=== PATIENT | female | born 1990 | race Caucasian/White ===

== ENCOUNTER 2019-02-01 09:23 | Inpatient (IN) | payer OTHER ==
--- NOTE | 2019-02-01 09:52 | PDOC.LDHP ---
Labor and Delivery H&P Chief complaint: scheduled section HPI: Pt is a 29yo @ 39 weeks here for scheduled RCS. Current gestational age (weeks): 39 Due date: 02/08/19 Dating criteria: last menstrual period, first trimester ultrasound Grav: 3 Para: 2 OB History Details: prev CS x 2 Current complications: none Abnormal US findings: No Current medications: pre- vitamins Previous surgical history: low tranverse CS (x2) Social history: none - Physical Exam Vital signs reviewed and normal: yes General: NAD Heart: RRR Lungs: CTAB Abdomen: gravid Extremeties: no edema FHT: category 1 - OB Labs Blood type: O RH: positive Antibody Screen: negative HIV: negative RPR: negative HEPSAg: negative 1 hour GCT: negative GBS: negative Rubella: immune - Assessment L&D Assessment: scheduled repeat section - Plan Plan: admit to L&D, to OR for section, informed consent obtained, anesthesia consult for pain management -: A/P: Scheduled RCS @ 39 weeks, OnQ pump desired.
[2019-02-01] MEDS ORDERED: Lactated Ringer's 1,000 ML IV SCH ×2 (10:36→15:34)
[2019-02-01] MEDS ORDERED: Promethazine HCl 25 MG/ML VIAL IM PRN ×3 (10:36→16:38)
[2019-02-01] MEDS ORDERED: Ondansetron PF 4 MG/2 ML Vial IVP PRN ×4 (10:36→16:38)
[2019-02-01] MEDS ORDERED: Ropivacaine 0.2% 550 ML 750 ML NERVE BLCK SCH (10:36)
[2019-02-01 11:17] VITALS: BMI 29.2
[2019-02-01] MEDS ORDERED: Ropivacaine HCl/PF 750 ML in Premix Bag 1 BAG NERVE BLCK SCH (11:30)
[2019-02-01] MEDS ORDERED: Bicitra 30 ML UDCUP PO SCH (11:30)
[2019-02-01] MEDS ORDERED: CEFAZOLIN 2 GM in Premix Bag 1 BAG IVPB SCH (11:30)
[2019-02-01 11:49] LABS: Hemoglobin 10.4 g/dL (12.0-16.0); Mean Corpuscular HGB CONC 34.6 g/dL (32.0-36.0); Mean Corpuscular Volume 86.8 fL (78.0-98.0); Mean Platelet Volume 8.3 fL (7.4-10.4); Platelet Count 266 thou/uL (130-400); RBC Distribution Width 11.7 % (11.5-14.5); Red Blood Cell (RBC) Count 3.47 mill/uL (4.20-5.40); White Blood Cell (WBC) Count 10.5 thou/uL (4.8-10.8)
[2019-02-01] MEDS ORDERED: Eucerin (Mineral Oil/Petrolatum,White) 30 gm Jar TOP PRN (11:52)
[2019-02-01] MEDS ORDERED: Ketorolac Tromethamine 30 MG/ML VIAL IVP PRN ×2 (11:52→16:38)
[2019-02-01] MEDS ORDERED: L&D-Morphine 4 MG/ML VIAL SLOW IVP PRN (11:52)
[2019-02-01] MEDS ORDERED: Naloxone HCl 0.4 mg/ml Vial IV PRN ×4 (11:52→16:38)
[2019-02-01] MEDS ORDERED: Naloxone HCl 0.4 mg/ml Vial IVP PRN ×2 (11:52)
[2019-02-01] MEDS ORDERED: Promethazine HCl 25 MG SUPP PR PRN ×2 (11:52→16:38)
[2019-02-01] MEDS ORDERED: diphenhydrAMINE 50 MG/ML VIAL IVP PRN ×2 (11:52→16:38)
[2019-02-01] MEDS ORDERED: Meperidine HCl/PF 25 MG/ML VIAL SLOW IVP PRN (11:52)
[2019-02-01] MEDS ORDERED: Ondansetron HCl/PF 4 MG/2 ML Vial IVP PRN (11:52)
[2019-02-01] MEDS ORDERED: Ondansetron PF 4 MG/2 ML Vial ONE (11:58)
[2019-02-01] MEDS ORDERED: Ketorolac Tromethamine 30 MG/ML VIAL ONE (11:58)
[2019-02-01] MEDS ORDERED: ePHEDrine/0.9% NaCl/PF SYRINGE 50 mg/10 ml ONE (11:58)
[2019-02-01] MEDS ORDERED: MORPHINE 5 MG/10 ML PF VIAL ONE (11:58)
[2019-02-01] MEDS ORDERED: Communication Order-Pharmacy FS SCH (12:00)
[2019-02-01] MEDS ORDERED: Ketorolac Tromethamine 30 MG/ML VIAL IVP SCH (12:00)
[2019-02-01 12:34] LABS: Hep B Surf Ag Non-Reactive S/CO (NonReactive)
[2019-02-01 12:35] LABS: Syphilis Antibody Nonreactive (Nonreactive); Syphilis Antibody Index 0.02 S/CO (<1.00 Non-Reactive)
[2019-02-01] MEDS ORDERED: Bupivacaine 0.25% HCL 30 ML VIAL ONE (12:47)
[2019-02-01] MEDS ORDERED: Oxytocin 10 UNITS/ML VIAL ONE (12:49)
--- NOTE | 2019-02-01 13:27 | PDOC.OPDEL ---
OB Operative/Delivery Note Delivery Dr/Surgeon: DO Rober Assist: SOBIA Mosley Pre-Delivery Diagnosis: scheduled section (w placement of OnQ nerve block) Procedure/Post Delivery Dx: repeat low transverse CS Weeks gestation: 39 Anesthesia: spinal - Findings A Sex: male Weight: 6 lb 14 oz - 1 min: 9 - 5 min: 9 - Additional Findings/Plan Placenta delivered: spontaneous findings: low transverse hysterotomy without extension, normal uterus, normal tubes, normal ovaries Estimated blood loss: 500ml Post delivery plan: routine recovery
[2019-02-01] MEDS ORDERED: Promethazine HCl 25 MG/ML VIAL ONE (14:10)
[2019-02-01] MEDS ORDERED: diphenhydrAMINE 50 MG/ML VIAL ONE (14:10)
[2019-02-01] MEDS ORDERED: Naloxone HCl 0.4 mg/ml Vial ONE (14:10)
[2019-02-01] MEDS ORDERED: NS / Oxytocin 40 units/1000ml 1,000 ML IV SCH (15:34)
[2019-02-01] MEDS ORDERED: Lanolin Ointment 7 GM TUBE TOP PRN (15:34)
[2019-02-01] MEDS ORDERED: Simethicone Chewable 80 MG TAB PO PRN (15:34)
[2019-02-01] MEDS ORDERED: Bisacodyl 10 MG SUPP PR PRN (15:34)
[2019-02-01] MEDS ORDERED: Hydrocerin (Eucerin) Cream 120 gm Jar TOP PRN (16:38)
[2019-02-01] MEDS ORDERED: NO PO,IM,IV OR SC NARCOTICS FOR 12HR EXCEPT BY ANESTHESIA PO SCH (16:38)
--- NOTE | 2019-02-01 19:51 | OP ---
DATE OF PROCEDURE: 02/01/2019 PREOPERATIVE DIAGNOSES: 1. 29-year-old, G3, P2-0-0-2 at 39 weeks. 2. Previous section x2. 3. Desires repeat low transverse section and On-Q pump placement. POSTOPERATIVE DIAGNOSIS: Status post repeat low transverse section. QUALITY CONTROL PROJECTIONIST: SOBIA Diallo PROCEDURES PERFORMED: Repeat low transverse section and On-Q pump placement. COMPLICATIONS: None. ANESTHESIA: Spinal per Dr. Marvin. ESTIMATED BLOOD LOSS: 500 mL. OPERATIVE FINDINGS: 1. Low transverse hysterotomy without extension. 2. Normal-appearing uterus, tubes, and ovaries bilaterally. 3. No intraabdominal adhesive disease noted. 4. Vigorous male infant, weight 6 pounds 14 ounces. Apgars 9 and 9 to [place] [facility]. 5. Surgical site hemostatic. DESCRIPTION OF PROCEDURE: The patient was taken back to the OR with IV fluids running. When she was in the OR, spinal anesthesia was obtained. The patient was then placed in dorsal supine position with a left lateral tilt. A Taveras catheter was placed using sterile technique. A 2 g of Ancef was given preop. The abdomen was then prepped and draped in normal fashion for section. The surgeons were scrubbed in, gowned, and gloved. Anesthesia was tested and found to be adequate. A Pfannenstiel skin incision was made through the skin with a scalpel. Skin incision was carried down through the subcutaneous layer to the fascia. Once the fascia was reached, it was incised in the midline and extended superolaterally using curved Riley scissors. Leonardo clamps were placed at the superior border of the fascia, which was sharply and bluntly dissected off the rectus abdominis muscles. In similar fashion, Leonardo clamps were placed at the inferior border of the fascia, which was dissected down towards the level of pubic symphysis. The rectus muscles and peritoneum were bluntly entered and stretched laterally. An Daniel O retractor was placed into the peritoneal cavity for retraction, visualization, and protection of the wound. A bladder flap was created using Metzenbaum scissors, and the bladder was dissected away from the planned hysterotomy site. A low-transverse hysterotomy was made with a scalpel. The hysterotomy was bluntly entered and stretched superolaterally using Encarnacion maneuver. Allis clamp was used to rupture the membranes with clear fluid noted. The was delivered through the hysterotomy without difficulty. The nose and mouth were suctioned. The cord was doubly clamped and cut, and the was handed off to special care nurse in attendance. Cord blood was collected. The placenta was delivered. The uterus was exteriorized, massaged to firm and cleared of clot and debris. The uterus was returned to the abdominal cavity. The hysterotomy was closed with Monocryl suture in a running locked fashion. After the hysterotomy was closed, it was inspected with no areas of bleeding noted. The hysterotomy and paracolic gutter were then irrigated and suctioned dry. Hysterotomy was inspected again with no bleeding noted. The peritoneum was then reapproximated with plain gut suture. Two On-Q catheter tips were placed through the skin, subcutaneous tissue, and fascia and directed to lay in the corners of the incision between the rectus muscle and rectus fascia. These were primed with 0.25% Marcaine and noted to flow well. The fascial layer was then reapproximated with PDS suture from corner to corner. The subcutaneous layer was then irrigated and dried. Any small areas of bleeding were controlled with Bovie cauterization. The subcuticular layer was then reapproximated with 4-0 Monocryl and dressed with Dermabond dressing. The catheter tips were primed again with the local flowing well through the catheter tubing. The sterile dressing was placed over the On-Q catheter tip entrance sites. The patient was then cleaned and dried and taken to recovery room in good condition. Job ID: [id number]
[2019-02-01] MEDS: Docusate Calcium (SURFAK) 240 MG CAP PO SCH (21:00)
[2019-02-01] MEDS ORDERED: Adacel (T-DAP) 0.5 ML SYRINGE IM ONE (21:00)
[2019-02-01] MEDS: Ibuprofen 800 MG TAB PO SCH (22:00)
[2019-02-02] MEDS: Ibuprofen 800 MG TAB PO SCH ×3 (05:51→22:15)
[2019-02-02 06:27] LABS: Hemoglobin 9.7 g/dL (12.0-16.0); Mean Corpuscular HGB CONC 33.4 g/dL (32.0-36.0); Mean Corpuscular Hemoglobin 29.3 pg (27.0-31.0); Mean Corpuscular Volume 87.9 fL (78.0-98.0); Mean Platelet Volume 7.9 fL (7.4-10.4); Platelet Count 219 thou/uL (130-400); RBC Distribution Width 11.7 % (11.5-14.5); White Blood Cell (WBC) Count 10.9 thou/uL (4.8-10.8)
[2019-02-02] MEDS: Prenatal Vitamin 1 TAB PO SCH (09:54)
[2019-02-02] MEDS: Docusate Calcium (SURFAK) 240 MG CAP PO SCH ×2 (09:54→22:14)
--- NOTE | 2019-02-02 10:02 | PDOC.PP ---
Post Progress Note Post Day #: 1 Subjective: Doing well, minimal discomfort, only concern is constant leaking of OnQ pump. Breast feeding, minimal lochia noted. PO intake tolerated: yes Flatus: yes Ambulation: yes Vital Signs (12 hours) Temp Pulse Resp BP Pulse Ox 02/02/19 08:49 97.8 F 65 20 109/61 96 02/02/19 05:10 98.1 F 78 18 116/61 02/02/19 01:35 98.0 F 83 16 109/58 L Weight Weight 187 lb - Physical Examination General: NAD Fundus firm & at: below umb Extremities: negative homans (B) Skin: CS incision dry & intact (On Q catheters removed at bedside for leaking, no bleeding from port sites after removal.) Neurological: no gross focal deficits Psychiatric: A&Ox3, normal affect Result Diagrams: 02/02/19 06:17 Additional Labs: Post Labs Blood Type O POSITIVE 02/01/19 15:43 Hep Bs Antigen Non-Reactive S/CO (NonReactive) 02/01/19 10:37 (1) Status post repeat low transverse section Code(s): Z98.891 - HISTORY OF UTERINE SCAR FROM PREVIOUS SURGERY Status: Acute - Assessment/Plan POD 1 doing well sp scheduled RCS @ 39 weeks. OnQ pump removed for leaking. Possible DC home tomorrow.
[2019-02-02] MEDS: HYDROcodone/Acetaminophen 5/325 mg Tablet PO PRN (17:53)
[2019-02-03] MEDS: Ibuprofen 800 MG TAB PO SCH (05:33)
[2019-02-03] MEDS: HYDROcodone/Acetaminophen 5/325 mg Tablet PO PRN (05:33)
[2019-02-03 08:57] VITALS: BP 102/57; TEMP 98.2
[2019-02-03] MEDS: Prenatal Vitamin 1 TAB PO SCH (09:42)
[2019-02-03] MEDS: Docusate Calcium (SURFAK) 240 MG CAP PO SCH (09:42)
--- NOTE | 2019-02-03 10:58 | PDOC.PP ---
Post Progress Note Post Day #: 2 Subjective: doing well, pain controlled w oral meds, no NV, desires DC home today PO intake tolerated: yes Flatus: yes Ambulation: yes Vital Signs (12 hours) Temp Pulse Resp BP Pulse Ox 02/03/19 08:56 98.2 F 94 20 102/57 L 97 02/03/19 05:15 97.9 F 75 18 122/67 02/03/19 00:30 97.8 F 82 18 108/64 Weight Weight 187 lb - Physical Examination General: NAD Respiratory: non-labored breathing Skin: CS incision dry & intact, no rash Neurological: no gross focal deficits Psychiatric: A&Ox3, normal affect Result Diagrams: 02/02/19 06:17 Additional Labs: Post Labs Blood Type O POSITIVE 02/01/19 15:43 Hep Bs Antigen Non-Reactive S/CO (NonReactive) 02/01/19 10:37 (1) Status post repeat low transverse section Code(s): Z98.891 - HISTORY OF UTERINE SCAR FROM PREVIOUS SURGERY Status: Acute - Assessment/Plan A/P: POD2 doing well, after RCS. Desires DC home today. Pain medication use reviewed.
== END 2019-02-03 12:45 | disposition home or self-care (01) | DRG 787 ==
LOC: L&D 10:09 → 3SW 15:31
PROVIDERS: ADMIT Obstetrics & Gynecology; ATTEND Obstetrics & Gynecology
PROC: 10D00Z1 Extraction of Products of Conception, Low, Open Approach (ICD-10-PCS; principal; 2019-02-01)
DX: O34.211 Maternal care for low transverse scar from previous cesarean delivery (principal); T82.534A Leakage of infusion catheter, initial encounter; Z3A.39 39 weeks gestation of pregnancy; Z37.0 Single live birth; O90.89 Other complications of the puerperium, not elsewhere classified
CPT/HCPCS: 36415; 51702; 85027; 86780; 86850; 86870; 86900; 86901; 86905; 86922; 87340; J0690; J1200; J1885; J2270; J2310; J2405; J2550; J2590; J2795; S0020